=== PATIENT | male | born 1980 | race Caucasian/White ===

== ENCOUNTER 2024-05-01 04:24 | Emergency (ER) | payer BC, OTHER ==
[2024-05-01 04:40] VITALS: RESP 16; BMI 30.4
[2024-05-01] MEDS ORDERED: FAMOTIDINE 20 MG/50 ML IVPB 20 MG/50 ML MG IVPB ONE (05:10)
[2024-05-01] MEDS ORDERED: ACETAMINOPHEN INJECTION 100 ML IVPB ONE (05:10)
[2024-05-01] MEDS: SODIUM CHLORIDE 1,000 ML IV STA (05:20)
[2024-05-01] MEDS: ACETAMINOPHEN 1000 MG/100 ML BAG IVPB ONE (05:20)
[2024-05-01] MEDS: FAMOTIDINE 20 MG/50 ML IVPB 20 MG/50 ML MG IVPB ONE (05:21)
[2024-05-01 05:59] LABS: BASO % 0.4 % (0-2.0); EOS % 3.6 % (0-4.5); HEMATOCRIT 41.3 % (35.4-49); LYMPH % 37.3 % (8-40); MCH 29.9 pg (25.7-33.7); MCHC 33.9 g/dl (32.0-35.9); MEAN CELL VOLUME 88.1 fl (80-96); MONO % 8.3 % (3.8-10.2); NEUT % 50.4 % (42.8-82.8); PLATELET COUNT 171 10^3/uL (134-434); RBC 4.68 M/mm3 (4.00-5.60); RDW 14.8 % (11.9-15.9); WHITE BLOOD COUNT 7.2 K/mm3 (4.0-10.0)
[2024-05-01 06:50] LABS: ALBUMIN 3.9 g/dl (3.4-5.0); BLOOD UREA NITROGEN 14.6 mg/dL (7-18)
[2024-05-01 06:53] LABS: CREATININE 0.9 mg/dL (0.55-1.3)
[2024-05-01 06:54] LABS: BILIRUBIN,TOTAL 0.6 mg/dL (0.2-1); TOT PROT 7.1 g/dl (6.4-8.2)
[2024-05-01 06:55] VITALS: BP 140/88; PULSE 72; TEMP 98
== END 2024-05-01 07:00 | disposition home or self-care (01) ==
LOC: FER 04:24
PROC: 3E033GC Introduction of Other Therapeutic Substance into Peripheral Vein, Percutaneous Approach (ICD-10-PCS; principal; 2024-05-01)
PROC: 3E033NZ Introduction of Analgesics, Hypnotics, Sedatives into Peripheral Vein, Percutaneous Approach (ICD-10-PCS; 2024-05-01)
DX: R07.89 Other chest pain (principal)
CPT/HCPCS: 36415; 80053; 84484; 85025; 93005; 99285-25; J0131